=== PATIENT | male | born 1990 | race Caucasian/White ===

== ENCOUNTER 2023-09-10 22:45 | Emergency (ER) | payer SELFPAY ==
[2023-09-11 00:50] VITALS: BP 131/69; PULSE 81; TEMP 97.6
== END 2023-09-11 01:01 ==
LOC: COL.ER 22:45
DX: S62.607A Fracture of unspecified phalanx of left little finger, initial encounter for closed fracture (principal); Y04.8XXA Assault by other bodily force, initial encounter